=== PATIENT | male | born 1990 | race American Indian/Alaskan Native ===

== ENCOUNTER 2017-01-02 21:25 | Emergency (ER) | payer OTHER ==
[2017-01-02] MEDS ORDERED: Lidocaine 1% 30 ML SDV INJECT ONE (21:38)
[2017-01-02] MEDS ORDERED: Clindamycin HCl 150 MG Cap PO ONE ×2 (21:54→22:10)
--- NOTE | 2017-01-02 22:01 | EDM.PDOC ---
ED HPI GENERAL MEDICAL PROBLEM - General Chief Complaint: Skin Complaint Stated Complaint: TAILBONE PAIN, [id number] Time Seen by Provider: 01/02/17 21:50 Source of Information: Reports: Patient History Limitations: Reports: No Limitations - History of Present Illness INITIAL COMMENTS - FREE TEXT/NARRATIVE: This 26 yo male patient reports to the ED with a 3 day history of an abscess on his left buttocks. The patient has not been seen in the Clinic at this time. Onset: Sudden Onset Date: 12/31/16 Duration: Constant, Getting Worse Location: Reports: Lower Extremity, Left Quality: Reports: Ache, Dull Severity: Moderate Improves with: Reports: None Worsens with: Reports: None Associated Symptoms: Reports: No Other Symptoms Treatments WINDOWS TECHNICAL SPECIALIST: Reports: Other (see below) Other Treatments WINDOWS TECHNICAL SPECIALIST: none ED ROS GENERAL - Review of Systems Review Of Systems: ROS reveals no pertinent complaints other than HPI. ED EXAM, SKIN/RASH Exam: See Below Exam Limited By: No Limitations General Appearance: Alert, WD/WN, Moderate Distress Eye Exam: Bilateral Eye: EOMI, Normal Inspection Ears: Normal External Exam Nose: Normal Inspection, No Blood Throat/Mouth: Normal Inspection, Normal Lips Head: Atraumatic, Normocephalic Neck: Normal Inspection, Full Range of Motion Respiratory/Chest: No Respiratory Distress Cardiovascular: Normal Peripheral Pulses, Regular Rate, Rhythm (Male) Exam: Deferred Rectal (Males) Exam: Deferred Extremities: Normal Inspection, Normal Range of Motion, Non-Tender, No Pedal Edema, Normal Capillary Refill Neurological: Alert, Oriented, CN II-XII Intact, Normal Cognition, Normal Gait, Normal Reflexes, No Motor/Sensory Deficits Psychiatric: Normal Affect, Normal Mood Skin: Erythema, Increased Warmth Location, Skin: Lower Extremity, Left (left buttocks) Characteristics: Erythematous Associated features: Wwelling, Induration Lymphatic: No Adenopathy ED SKIN PROCEDURES - I&D Site: Left Buttock Skin prep: Chlorhexidine (Hibiciens), Providone-Iodine (Betadine), Isopropyl Alcohol (Alcohol) Local anesthesia: Lidocaine: 1% Plain Local Anesthetic Volume: 5cc Area Incised With: 15 Blade Drainage: Purulent, Bloody, Moderate Amount Probed to Break Up Loculations: Yes Packed With: None Sterile Dressing: Adhesive Dressing Complications: No Course - Orders/Labs/Meds Meds: Medications Discontinued Medications Generic Name Dose Route Start Last Admin Trade Name Delmer PRN Reason Stop Dose Admin Clindamycin HCl 300 mg 01/02/17 21:54 Cleocin PO 01/02/17 21:55 ONETIME ONE Lidocaine HCl 30 ml 01/02/17 21:38 01/02/17 21:45 Xylocaine-Mpf 1% INJECT 01/02/17 21:39 8 ml ONETIME ONE Administration Departure - Departure Time of Disposition: 21:58 Disposition: Home, Self-Care 01 Condition: fair Clinical Impression: Abscess - Discharge Information Instructions: Abscess, [id number] Forms: ED Department Discharge Care Plan Goals: The patient was advised of the examination results during the visit. The patient 's abscess was incised and drained while in the ED. A sample of the drainage was sent to the lab for further analysis. The patient was given an oral dose of Clindamycin (300 mg) while in the ED. The patient was discharged with Clindamycin (150 mg) #2 to take 2 by mouth in the morning and a script for Clindamycin (300 mg) #30 to take 1 by mouth 3 times per day for 10 days. If the patient has any additional symptoms or concerns, the patient should follow-up with his primary care facility or return to the emergency department.
[2017-01-02] MEDS ORDERED: Clindamycin HCl 150 MG Cap ONE (22:10)
[2017-01-02 22:33] VITALS: BP 125/79
== END 2017-01-02 22:41 | disposition home or self-care (01) ==
LOC: DL.ED 21:25
DX: L02.31 Cutaneous abscess of buttock (principal)
CPT/HCPCS: 10060; 87070; 87077; 99283; A9270

== ENCOUNTER 2018-11-08 20:16 | Emergency (ER) | payer BC ==
[2018-11-08 20:34] VITALS: BP 135/73
--- NOTE | 2018-11-08 20:44 | EDM.PDOC ---
ED HPI GENERAL MEDICAL PROBLEM - General Chief Complaint: General Stated Complaint: FELL DOWN A FLIGHT OF STAIRS [id number] Time Seen by Provider: 11/08/18 20:43 Source of Information: Reports: Patient, Family, RN, RN Notes Reviewed History Limitations: Reports: No Limitations - History of Present Illness INITIAL COMMENTS - FREE TEXT/NARRATIVE: Pt to ER with c/o pain after falling down about 15 stairs. Patient states he caught his foot on one of the steps and fell the rest of the way down. He c/o pain in the left elbow, and pain to the lateral left calf. He denies hitting his head or getting knocked out. He states this happened about 5:30 today. He has been icing. Denies pain with breathing. Onset: Today, Sudden Left Pain Score (Numeric/FACES): 2 - Related Data Allergies Allergy/AdvReac Type Severity Reaction Status Date / Time No Known Allergies Allergy Verified 11/08/18 20:28 Home Meds: Home Meds . [No Known Home Meds] 01/02/17 [History] Past Medical History HEENT History: Reports: Impaired Vision Other HEENT History: wears corrective lenses Cardiovascular History: Reports: None Respiratory History: Reports: None Gastrointestinal History: Reports: Bowel Obstruction Other Gastrointestinal History: as Genitourinary History: Reports: None Musculoskeletal History: Reports: None Neurological History: Reports: None Psychiatric History: Reports: None Endocrine/Metabolic History: Reports: None Hematologic History: Reports: None Immunologic History: Reports: None Oncologic (Cancer) History: Reports: None Dermatologic History: Reports: None - Infectious Disease History Infectious Disease History: Reports: None - Past Surgical History Head Surgeries/Procedures: Reports: None HEENT Surgical History: Reports: None Cardiovascular Surgical History: Reports: None Respiratory Surgical History: Reports: None GI Surgical History: Reports: Small Bowel Other GI Surgeries/Procedures: as Male Surgical History: Reports: None Endocrine Surgical History: Reports: None Neurological Surgical History: Reports: None Oncologic Surgical History: Reports: None Dermatological Surgical History: Reports: None Social & Family History - Family History Family Medical History: Noncontributory - Tobacco Use Smoking Status *Q: Light Tobacco Smoker Years of Tobacco use: 10 Packs/Tins Daily: 0.5 - Caffeine Use Caffeine Use: Reports: Energy Drinks, Soda - Recreational Drug Use Recreational Drug Use: No ED ROS GENERAL - Review of Systems Review Of Systems: ROS reveals no pertinent complaints other than HPI. ED EXAM, GENERAL - Physical Exam Exam: See Below Exam Limited By: No Limitations General Appearance: Alert, WD/WN, No Apparent Distress Eye Exam: Bilateral Eye: EOMI, Normal Inspection Ears: Normal External Exam, Hearing Grossly Normal Nose: Normal Inspection Throat/Mouth: Normal Inspection, Normal Voice, No Airway Compromise Head: Atraumatic, Normocephalic Neck: Normal Inspection, Supple, Non-Tender, Full Range of Motion Respiratory/Chest: No Respiratory Distress, Lungs Clear, Normal Breath Sounds, No Accessory Muscle Use, Chest Non-Tender Cardiovascular: Normal Peripheral Pulses, Regular Rate, Rhythm, No Edema, No Gallop, No JVD, No Murmur, No Rub Peripheral Pulses: 2+: Radial (L), Radial (R) GI/Abdominal: Normal Bowel Sounds, Soft, Non-Tender (Male) Exam: Deferred Rectal (Males) Exam: Deferred Back Exam: Normal Inspection, Full Range of Motion, Other (Abrasion mid left back) Extremities: Joint Swelling (left elbow), Arm Pain (left elbow swelling, ecchymosis), Leg Pain (left lateral calf), Other (abrasion to left lateral calf) Neurological: Alert, Oriented, CN II-XII Intact, Normal Cognition, Normal Gait, Normal Reflexes, No Motor/Sensory Deficits Psychiatric: Normal Affect, Normal Mood Skin Exam: Warm, Dry, Intact, No Rash, Ecchymosis (left elbow) Lymphatic: No Adenopathy Course - Vital Signs Last Recorded V/S: Last Vital Signs Temp 97.6 F 11/08/18 20:29 Pulse 86 11/08/18 20:29 Resp 18 11/08/18 20:29 BP 135/73 11/08/18 20:29 Pulse Ox 97 11/08/18 20:29 - Orders/Labs/Meds Orders: Active Orders 24 hr Category Date Time Status Elbow Min 3V Lt [CR] Urgent Exams 11/08/18 20:59 Taken Tibia Fibula Lt [CR] Urgent Exams 11/08/18 20:59 Taken - Radiology Interpretation Free Text/Narrative:: Left elbow xray: FINDINGS: Bones/joints: Normal. Soft tissues: Soft tissue swelling posterior elbow. Bursitis not excluded. IMPRESSION: Soft tissue swelling posterior elbow. Bursitis not excluded. No fracture. Thank you for allowing us to participate in the care of your patient. Dictated and Authenticated by: Wally Hernandez MD 11/08/2018 9:46 PM Central Time ([place] & [place]) Left tib/fib xray: FINDINGS: Bones/joints: Normal. Soft tissues: Normal. IMPRESSION: No acute findings. Thank you for allowing us to participate in the care of your patient. Dictated and Authenticated by: Wally Hernandez MD 11/08/2018 9:47 PM Central Time ([place] & [place]) See rad report Departure - Departure Time of Disposition: 21:55 Disposition: Home, Self-Care 01 Condition: Fair Clinical Impression: Fall (on) (from) other stairs and steps, initial encounter Left elbow contusion Qualifiers: Encounter type: initial encounter Qualified Code(s): S50.02XA - Contusion of left elbow, initial encounter - Discharge Information *PRESCRIPTION DRUG MONITORING PROGRAM REVIEWED*: No *COPY OF PRESCRIPTION DRUG MONITORING REPORT IN PATIENT FABIOLA: No Instructions: Fall Prevention in the Home, [id number], Elbow Contusion, Easy- to-Read Forms: ED Department Discharge Additional Instructions: May ice the areas as tolerated Rest May use Tylenol and/or ibuprofen as directed for pain Follow up with your primary care facility if no improvement - My Orders Last 24 Hours: My Active Orders 11/08/18 20:59 Elbow Min 3V Lt [CR] Urgent Tibia Fibula Lt [CR] Urgent - Assessment/Plan Last 24 Hours: My Active Orders 11/08/18 20:59 Elbow Min 3V Lt [CR] Urgent Tibia Fibula Lt [CR] Urgent
== END 2018-11-08 22:05 | disposition home or self-care (01) ==
LOC: DL.ED 20:16
DX: S50.02XA Contusion of left elbow, initial encounter (principal); S80.812A Abrasion, left lower leg, initial encounter; F17.210 Nicotine dependence, cigarettes, uncomplicated; W10.9XXA Fall (on) (from) unspecified stairs and steps, initial encounter
CPT/HCPCS: 73080-LT; 73590-LT; 99283-25